=== PATIENT | male | born 1980 | race American Indian/Alaskan Native ===

== ENCOUNTER 2018-09-03 10:05 | Emergency (ER) | payer OTHER ==
[2018-09-03 10:18] VITALS: BP 136/76
[2018-09-03] MEDS ORDERED: MORPHINE IM ONE (13:16)
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
== END 2018-09-03 13:52 | disposition home or self-care (01) ==
LOC: ED 10:05
DX: M54.5 Low back pain (principal); M25.561 Pain in right knee; M25.562 Pain in left knee; I10 Essential (primary) hypertension; G43.909 Migraine, unspecified, not intractable, without status migrainosus; J45.909 Unspecified asthma, uncomplicated; G47.30 Sleep apnea, unspecified; Z88.8 Allergy status to other drugs, medicaments and biological substances
CPT/HCPCS: 96372; 99282; J2270